=== PATIENT | male | born 1980 | race Asian ===

== ENCOUNTER 2016-10-02 09:50 | Emergency (ER) | payer OTHER ==
[~2016-10-02] VITALS: Ht 162.6 cm; Wt 89.4 kg
[2016-10-02 10:04] VITALS: BP 185/135
[2016-10-02] MEDS ORDERED: HYDROcodone/APAP 5/325 TABLET ONE (10:56)
[2016-10-02] MEDS ORDERED: HYDROcodone/APAP 5/325 TABLET PO PRN (11:00)
[2016-10-02] MEDS ORDERED: LISINOPRIL 20 MG TABLET PO ONE (11:00)
[2016-10-02] MEDS ORDERED: LISI40TA PO (11:03)
[2016-10-02] MEDS ORDERED: METF10002 PO (11:03)
== END 2016-10-02 13:00 | disposition home or self-care (01) ==
LOC: EDBD 09:50 → ED 12:54
DX: S96.812A Strain of other specified muscles and tendons at ankle and foot level, left foot, initial encounter (principal); I10 Essential (primary) hypertension; X58.XXXA Exposure to other specified factors, initial encounter; Y93.89 Activity, other specified; Y92.89 Other specified places as the place of occurrence of the external cause; Y99.8 Other external cause status
CPT/HCPCS: 29515; 93005